=== PATIENT | female | born 1995 | race Caucasian/White ===

== ENCOUNTER 2022-10-15 13:39 | Emergency (ER) | payer OTHER ==
[2022-10-15 13:58] VITALS: BMI 25.2
[2022-10-15] MEDS ORDERED: SODIUM CHLORIDE 0.9% 500 ML INFUS.BAG IV ONE (14:42)
[2022-10-15] MEDS ORDERED: ONDANSETRON 4 MG/2 ML VIAL IVPUSH ONE (14:42)
[2022-10-15] MEDS ORDERED: ONDANSETRON 4 MG/2 ML VIAL ONE (15:13)
[2022-10-15 15:47] LABS: BASO % 0.5 % (0-2.0); EOS % 0.7 % (0-4.5); HEMATOCRIT 34.7 % (32.4-45.2); HEMOGLOBIN 11.7 GM/dL (10.7-15.3); LYMPH % 13.7 % (8-40); MCH 28.8 pg (25.7-33.7); MCHC 33.8 g/dl (32.0-36.0); MEAN CELL VOLUME 85.3 fl (80-96); MEAN PLT VOLUME 10.7 fl (7.5-11.1); MONO % 10.4 % (3.8-10.2); NEUT % 74.7 % (42.8-82.8); PLATELET COUNT 65 10^3/uL (134-434); RBC 4.07 M/mm3 (3.60-5.2); RDW 14.4 % (11.6-15.6); WHITE BLOOD COUNT 10.6 K/mm3 (4.0-10.0)
[2022-10-15 15:49] LABS: EPI CELLS >36 /uL (0-25.1); HYALINE CASTS 10 /uL (0-3.1); PH,URINE 5.5 (5.0-8.0); URINE APPEARANCE TURBID; URINE BACTERIA 3072 /uL (0-1359); URINE BILIRUBIN 1+ (NEGATIVE); URINE COLOR DK YELLOW; URINE GLUCOSE (UA) NEGATIVE (NEGATIVE); URINE KETONE 2+ (NEGATIVE); URINE LEUK ESTERASE 1+ (NEGATIVE); URINE NITRITE NEGATIVE (NEGATIVE); URINE PROTEIN 1+ (NEGATIVE); URINE RBC 19 /uL (0-23.9); URINE WBC 77 /uL (0-25.8)
[2022-10-15 16:08] LABS: CALCIUM 8.7 mg/dL (8.5-10.1)
[2022-10-15 16:09] LABS: BLOOD UREA NITROGEN 8.8 mg/dL (7-18)
[2022-10-15 16:12] LABS: CREATININE 0.4 mg/dL (0.55-1.3)
[2022-10-15 16:13] LABS: BILIRUBIN,TOTAL 0.4 mg/dL (0.2-1); TOT PROT 6.8 g/dl (6.4-8.2)
[2022-10-15] MEDS ORDERED: POTASSIUM CHLORIDE TABS 20 MEQ TABLET.ER (FP) PO ONE ×2 (16:20→17:02)
[2022-10-15 17:59] VITALS: BP 118/78; PULSE 94; RESP 18; TEMP 97.9
== END 2022-10-15 18:00 | disposition home or self-care (01) ==
LOC: JER 13:39
PROC: 3E033GC Introduction of Other Therapeutic Substance into Peripheral Vein, Percutaneous Approach (ICD-10-PCS; principal; 2022-10-15)
DX: O21.8 Other vomiting complicating pregnancy (principal); Z3A.29 29 weeks gestation of pregnancy
CPT/HCPCS: 0241U-QW; 36415; 80053; 81003; 85025; 87086; 99284-25